=== PATIENT | male | born 1990 | race Caucasian/White ===

== ENCOUNTER 2017-08-17 16:15 | Emergency (ER) | payer SELFPAY ==
[~2017-08-17] VITALS: Ht 198.1 cm; Wt 83.0 kg
[2017-08-17 17:40] VITALS: BP 122/82
== END 2017-08-17 17:40 | disposition home or self-care (01) ==
LOC: ED 16:15
DX: Z00.8 Encounter for other general examination (principal); R22.1 Localized swelling, mass and lump, neck